=== PATIENT | male | born 1995 | race Hispanic/Latino ===

== ENCOUNTER 2018-09-18 21:38 | Emergency (ER) | payer OTHER ==
[2018-09-18 21:49] VITALS: BP 137/92
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
== END 2018-09-19 03:45 | disposition home or self-care (01) ==
LOC: ED 21:38
DX: S02.2XXB Fracture of nasal bones, initial encounter for open fracture (principal); S01.21XA Laceration without foreign body of nose, initial encounter; X58.XXXA Exposure to other specified factors, initial encounter; Y93.89 Activity, other specified; Y99.8 Other external cause status; Y92.89 Other specified places as the place of occurrence of the external cause
CPT/HCPCS: 70450; 70486